=== PATIENT | female | born 1950 | race Caucasian/White ===

== ENCOUNTER → 2018-01-16 | Outpatient (CLI) | payer MEDICARE, OTHER ==
[~2018-01-16] MED LIST: CALCIUM + D 6001 TA1 PO; CARDI-OMEGA1000 MG PO; CLARITIN 1010 MG/TAB PO; CYMBALTA 30MG30 MG PO; DUO-KAPS1 CAP PO; EVISTA 60MG60 MG/TAB PO; GELATIN CAPSUL650 MG PO; HYZAAR 50-12.1 UDTAB PO; K-TAB20 PO; KLOR-CON M2020 MEQ PO; L-LYSINE500 MG PO; LAMISIL250 MG PO; NIACIN500 MG PO; NORCO 325 MG-51 TAB PO; PRILOSEC 20MG20 MG PO; SYNTHROID0.125 MG/T PO; TOPAMAX50 MG PO; ULTRAM 50MG TAB50 MG; ZANTAC 150MG T150 MG PO; ZOLOFT 50MG50 MG PO; ZOVIRAX CREAM3 GM TP
== END ==
LOC: MC.RAD 08:40
DX: Z12.31 Encounter for screening mammogram for malignant neoplasm of breast (principal)

== ENCOUNTER → 2018-03-17 | Outpatient (CLI) | payer MEDICARE, OTHER | LOC: COL.RAD 03-16 09:30 | DX: D47.2 Monoclonal gammopathy (principal); D50.9 Iron deficiency anemia, unspecified; Z90.49 Acquired absence of other specified parts of digestive tract ==

== ENCOUNTER 2018-05-22 16:47 | Emergency (ER) | payer MEDICARE, OTHER ==
[2018-05-22 16:57] VITALS: TEMP 98.2
[2018-05-22 17:55] LABS: BASO # 0.1 (0.0-0.2); BASO % 0.8 % (0.0-2.0); EOS # 0.2 (0.0-0.7); EOS % 2.3 % (0-4.0); GRAN # 3.9 (1.4-6.5); HEMATOCRIT 34.8 % (37.0-47.0); HEMOGLOBIN 11.5 g/dl (12.5-16.0); LYMPH # 1.8 (1.2-3.4); LYMPH % 26.8 % (20.0-51.0); MEAN CELL VOLUME 89 fl (80.0-100.0); MEAN CORPUSCULAR HEMOGLOBIN 30 pg (27.0-31.0); MEAN CORPUSCULAR HGB CONC 33 g/dl (33.0-37.0); MEAN PLATELET VOLUME 10.1 fl (7.4-10.4); MONO # 0.6 (0.1-0.6); MONO % 9.8 % (1.7-9.3); PLATELET COUNT 300 K/mm3 (130-400); REDCELL DISTRIBUTION WIDTH-CV 14.5 % (11.5-14.5)
[2018-05-22 17:56] LABS: INR 0.9 (0.8-3.0); PROTHROMBIN TIME 10.3 SECONDS (9.7-12.8)
[2018-05-22 17:58] LABS: ALANINE AMINOTRANSFERASE 18 U/L (9-52); ALBUMIN 3.8 gm/dL (3.5-5.0); ALKALINE PHOSPHATASE 69 U/L (50-136); ANION GAP 11 mmol/L (7-16); AST,SGOT 30 U/L (15-37); BILIRUBIN,TOTAL 0.3 mg/dL (0.0-1.0); BLOOD UREA NITROGEN 19 mg/dL (7-17); CALCIUM 8.7 mg/dL (8.4-10.2); CARBON DIOXIDE 29 mmol/L (22-30); CHLORIDE 95 mmol/L (98-107); CREATININE, serum 1.18 mg/dL (0.52-1.25); GLUCOSE 110 mg/dL (74-106); PARTIAL THROMBOPLASTIN TIME 27.5 SECONDS (26.0-37.0); SODIUM 135 mmol/L (137-145); TOTAL PROTEIN 7.4 gm/dL (6.4-8.2)
[2018-05-22 18:03] LABS: POTASSIUM 2.7 mmol/L (3.4-5.0)
[2018-05-22 18:09] LABS: TROPONIN-I < 0.012 ng/mL (0.000-0.034)
[2018-05-22 19:40] VITALS: BP 115/74; PULSE 67
== END 2018-05-22 19:42 | disposition home or self-care (01) ==
LOC: COL.ER 16:47
PROVIDERS: Family Medicine
DX: E87.6 Hypokalemia (principal); R00.0 Tachycardia, unspecified; I10 Essential (primary) hypertension; K21.9 Gastro-esophageal reflux disease without esophagitis; Z90.49 Acquired absence of other specified parts of digestive tract
CPT/HCPCS: J2405; J7030

== ENCOUNTER → 2019-10-15 | Outpatient (CLI) | payer MEDICARE, OTHER ==
[~2019-10-15] MED LIST changes: +COZAAR 50MG50 MG/TAB PO; +CRANBERRY500 M3 PO; +DOXYCYCLINE HY100 MG; +ELIQUIS 5MG PO; +FIBER GUMMIES2.5 GM; +KLOR-CON 1010 MEQ PO; +LEVOXYL0.125 MG PO; +NEURONTIN100 MG/CAP PO; +PACERONE400 MG PO; +PROAIR HFA0.09 MG/AC IH; +SYNTHROID0.1 MG/TAB PO; +TAMIFLU30 MG PO; +TESSALON PERLE200 MG PO; +TOPAMAX 25MG25 M1 PO
== END ==
LOC: COL.RAD 09:16
DX: D47.2 Monoclonal gammopathy (principal); M85.80 Other specified disorders of bone density and structure, unspecified site

== ENCOUNTER 2019-11-23 14:21 | Emergency (ER) | payer OTHER, MEDICARE ==
[~2019-11-23] VITALS: Ht 154.9 cm; Wt 76.4 kg
[2019-11-23 14:43] VITALS: BP 137/63; PULSE 82; TEMP 98.3
[2019-11-23] MEDS ORDERED: PACERONE400 MG PO (14:54)
[2019-11-23] MEDS ORDERED: NORCO 325 MG-51 TAB PO (15:47)
== END 2019-11-23 16:41 | disposition home or self-care (01) ==
LOC: COL.ER 14:21
DX: S61.111A Laceration without foreign body of right thumb with damage to nail, initial encounter (principal); I48.91 Unspecified atrial fibrillation; Z79.01 Long term (current) use of anticoagulants; W23.0XXA Caught, crushed, jammed, or pinched between moving objects, initial encounter; Y92.009 Unspecified place in unspecified non-institutional (private) residence as the place of occurrence of the external cause

== ENCOUNTER → 2020-05-15 | Outpatient (CLI) | payer MEDICARE, OTHER | LOC: MC.RAD 13:54 | DX: Z12.31 Encounter for screening mammogram for malignant neoplasm of breast (principal) ==